=== PATIENT | female | born 1945 | race Caucasian/White ===

== ENCOUNTER 2022-07-03 17:54 | Emergency (ER) | payer MEDICARE, OTHER ==
[2022-07-03 20:24] LABS: Bilirubin Neg (Negative); Blood, Urine 10 (Negative); Clarity Cloudy (Clear); Glucose, Urine (Dipstick) Normal (Negative); Ketone, Urine Negative (Negative); Leukocyte 500 (Negative); Nitrite Positive (Negative); Protein, Urine (Dipstick) 15 mg/dl (Neg-Trace); Urobilinogen Normal mg/dL (Less than 2)
[2022-07-03 20:31] LABS: RBC/HPF 0-3 HPF (0-3)
[2022-07-03 20:32] LABS: Bacteria/HPF 4+ HPF (None Seen); WBC/HPF 21-50 HPF (0-3)
[2022-07-03] MEDS ORDERED: Cephalexin 250 MG CAP ONE (21:10)
[2022-07-03] MEDS ORDERED: Boostrix 0.5 ML (Tdap) VIAL (>/=7 yrs of age) ONE (21:10)
== END 2022-07-03 21:25 | disposition home or self-care (01) ==
LOC: CSHERS 17:54
DX: S00.03XA Contusion of scalp, initial encounter (principal); S00.31XA Abrasion of nose, initial encounter; N39.0 Urinary tract infection, site not specified; I10 Essential (primary) hypertension; F17.200 Nicotine dependence, unspecified, uncomplicated; W01.10XA Fall on same level from slipping, tripping and stumbling with subsequent striking against unspecified object, initial encounter; Y99.0 Civilian activity done for income or pay
CPT/HCPCS: 70450; 81003; 81015; 87086; 90471; 90715